=== PATIENT | female | born 1970 | race Caucasian/White ===

== ENCOUNTER 2024-11-27 14:30 | Emergency (ER) | payer OTHER, SELFPAY ==
[2024-11-27 15:00] VITALS: BP 154/108; PULSE 106; RESP 16; TEMP 37.1; O2SAT 100; BMI 28.3
--- NOTE | 2024-11-27 15:23 | XR_ITS ---
FINAL REPORT CLINICAL HISTORY: Fall, proximal humerus pain FINDINGS: LEFT HUMERUS Two views were obtained. There is no fracture or dislocation. The joint spaces appear normal. No soft tissue abnormality is identified. IMPRESSION: No acute process. Reviewed, Interpreted and Dictated by Esthela Calero MD Transcribed by Jamila Granger Authenticated and [facility]
--- NOTE | 2024-11-27 15:23 | XR_ITS ---
FINAL REPORT CLINICAL HISTORY: Fall, shoulder pain FINDINGS: Four views of the left shoulder were obtained. There is no fracture or dislocation. The joint space is preserved. Soft tissues are unremarkable. IMPRESSION: No acute osseous abnormality of the left shoulder. Reviewed, Interpreted and Dictated by Esthela Calero MD Transcribed by Jamila Granger Authenticated and [facility]
--- NOTE | 2024-11-27 15:30 | HMH.EDGENADL ---
Discharge Plan Disposition Patient Disposition: Home, Self-Care Condition: Good Referrals Follow up/Referrals: Viraj Faye DO [Staff Physician, Orthopedics] - See instructions Liv Vega [Primary Care Provider, Medical] - See instructions Activity Restrictions/Add. Instructions Additional Instructions/Restrictions: You have a soft tissue injury of the shoulder. I want you to follow up with Dr. Faye of orthopedics. You will have to call his clinic number for an appointment. If you have any new or worsening symptoms please return. Clinical Impressions Clinical Impression: Acute pain of left shoulder Print Language Print Language: Argentine Discharge ED Provider: Jignesh Feliz Adult HPI General Chief complaint: Extremity Injury, Upper Stated complaint: AO 11/27/24 1230, fell, inj left arm/shoulder Time Seen by Provider: 11/27/24 15:07 Mode of Arrival: Ambulatory Source of Information: Patient Description of Symptoms (Recalled from ER Triage Doc. by RN): Patient states about 1230 this afternoon she tripped and fell onto her left arm and shoulder and is now having pain in both area. Has not taken anything for the pain. History of Present Illness HPI narrative: This is a 54-year-old female patient who is presented to the emergency department today for evaluation of left shoulder pain. 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 She fell onto an outstretched hand bilaterally. Since the fall she has been having pain in her left shoulder that is worse with movement. She does have full range of motion, however she does experience pain when doing so. She is having some subjective numbness in the left hand but she states that her sensation is symmetric when her hands are stimulated bilaterally. She has no weakness in her hands or upper extremity. Related Data Allergies Allergy/AdvReac Type Severity Reaction Status Date / Time aspirin AdvReac Nose Bleed Verified 11/27/24 15:04 [facility] Disclaimer: The information contained in this section may have been updated after the patient was seen, as this information can be updated by other users. Social History Smoking Status: Never smoker alcohol intake: never current occupational status: employed Travel in the last 8 weeks?: None ROS Obtained: Yes Systems reviewed as appropriate & no additional complaints except as documented Physical Exam General General appearance: other (See MDM) Respiratory Respiratory exam: Present other (See MDM) Cardiovascular Cardiovascular exam: Present other (See MDM) Neurological Exam Neurological exam: Present other (See MDM) Medical Decision Making Medical Records Medical records reviewed: Yes I reviewed the patient's medical records. Screening: Per USPSTF and CDC recommendations, given the prevalence of disease in our region, it is our hospital?s policy to screen for HIV and viral Hepatitis for all patients aged 18 and over and those with ongoing risk factors. Av Inquiry Pt receiving controlled substance: No Av was queried for this patient: No Vital Signs: 11/27/24 15:00 Temperature 98.8 F Temperature Source Oral Pulse Rate [Right Brachial] 106 H Respiratory Rate 16 Blood Pressure [Right Arm] 154/108 H Blood Pressure Mean [Right Arm] 123 Blood Pressure Source [Right Arm] Automatic Cuff Blood Pressure Position [Right Arm] Sitting 02 Sat by Pulse Oximetry 100 Oxygen Delivery Method Room Air Orders (Tests/Meds): ED MEDICATIONS Discontinued Medications Generic Name Dose Route Start Last Admin Trade Name Freq PRN Reason Stop Dose Admin Methocarbamol 1,500 mg 11/27/24 15:24 11/27/24 15:53 Methocarbamol 500mg Tablet PO 11/27/24 15:25 1,500 mg ONCE ONE Administration Oxycodone HCl 5 mg 11/27/24 15:24 11/27/24 15:52 Oxycodone 5mg Immediate Release Tablet PO 11/27/24 15:25 5 mg ONCE ONE Administration ORDERS Category Date Time Status Humerus XR left [XR humerus LT] Stat Exams 11/27/24 15:23 Completed Shoulder XR left minimum 2 views [XR shoulder LT min 2V Exams 11/27/24 15:23 Completed ] Stat Medical Decision Narrative: In summary, this is a 54-year-old female patient who is presenting to the emergency department today for evaluation of left shoulder pain after a fall on outstretched hand at school. This patient has no comorbidities that would complicate their medical management or care. On initial evaluation of the patient they were resting comfortably in no acute distress and nontoxic in appearance. They are hemodynamically stable, saturating well room air, and are neurologically intact. On physical examination the patient she is appropriately alert and interactive with a GCS of 15. She has no external signs of head trauma and her C-spine is nontender. She has no tenderness of her anterior chest wall. No tenderness to the anterior abdominal wall. Pelvis is stable. No deformities of the lower extremities. Regarding her left upper extremity, she has pain of the left shoulder with range of motion. She does have full range of motion of the left shoulder passively and actively. She has tenderness along the AC joint. Tenderness along the proximal humerus. She is able to resist pronation and supination with the elbow flexed. She has normal sensation in all terminal nerve distributions of the left upper extremity. Motor function is intact in the hand. Differential diagnosis includes a humeral neck fracture, glenohumeral subluxation, AC joint separation, among other bony abnormalities. Workup was initiated with x-rays of the left shoulder and left humerus. Initial interventions have included 5 mg of oxycodone and 1500 mg of Robaxin. X-rays personally interpreted by me demonstrates no acute fracture or dislocation. I have informed patient of his results. I have also discussed the fact that this could be a soft tissue injury. On repeat assessment her pain has significantly improved. I advised that she follow-up with Dr. Faye of the orthopedic surgery service for further workup with MRI. At this time all questions have been answered and all parties are agreeable with the decision to discharge home. Critical Care Critical Care Time Critical Care Time: No
[2024-11-27] MEDS: OXYCODONE 5MG IMMEDIATE RELEASE TABLET 5 MG PO (15:52)
[2024-11-27] MEDS: METHOCARBAMOL 500MG TABLET 1500 MG PO (15:53)
[2024-11-27 17:23] VITALS: BP 147/87; PULSE 84; RESP 17; TEMP 36.6; O2SAT 98
== END 2024-11-27 17:24 | disposition home or self-care (01) ==
PROVIDERS: Emergency Provider Student in an Organized Health Care Education/Training Program; PCP Nurse Practitioner Family
DX: M25.512 Pain in left shoulder (principal); R20.2 Paresthesia of skin
CPT/HCPCS: 73030; 73060; 99283; 99284

== ENCOUNTER 2025-01-15 15:00 | Outpatient (RCR) | payer OTHER, SELFPAY | END 2025-01-15 23:59 | disposition home or self-care (01) | LOC: PT.CARL 15:00 | PROVIDERS: Visit Provider Student in an Organized Health Care Education/Training Program | DX: S46.012D Strain of muscle(s) and tendon(s) of the rotator cuff of left shoulder, subsequent encounter (principal); X58.XXXD Exposure to other specified factors, subsequent encounter | CPT/HCPCS: 97110; 97140; 97161; 97530 ==

== ENCOUNTER 2025-01-22 15:25 | Outpatient (RCR) | payer OTHER, SELFPAY | END 2025-01-22 23:59 | disposition home or self-care (01) | LOC: PT.CARL 15:25 | PROVIDERS: Visit Provider Student in an Organized Health Care Education/Training Program | DX: S46.012D Strain of muscle(s) and tendon(s) of the rotator cuff of left shoulder, subsequent encounter (principal); X58.XXXD Exposure to other specified factors, subsequent encounter | CPT/HCPCS: 97110 ==